=== PATIENT | female | born 1985 | race Two or more races ===

== ENCOUNTER 2019-08-31 09:01 | Emergency (ER) | payer MEDICAID, OTHER ==
[~2019-08-31] VITALS: Ht 160 cm; Wt 74.4 kg
[2019-08-31 09:42] VITALS: BP 142/103
[2019-08-31 10:00] LABS: Urine Bacteria FEW /hpf (None Seen); Urine Blood Negative /uL (Negative); Urine Mucus FEW (None Seen); Urine Specific Gravity 1.031 (1.001-1.035); Urine WBC 5 /hpf (0 - 5)
[2019-08-31] MEDS ORDERED: ONDANSETRON ODT 4 MG TAB PO ONE ×2 (10:15→10:30)
[2019-08-31] MEDS ORDERED: cefTRIAXone SOD 1,000 MG VL IM ONE (10:15)
[2019-08-31] MEDS ORDERED: cefTRIAXone 1GM/50ML D5W 50 ML IV ONE (10:30)
[2019-08-31] MEDS ORDERED: SODIUM CHLORIDE 0.9% 1,000 ML IV ONE (10:30)
[2019-08-31 10:40] LABS: Basophils # (auto) 0 uL; Basophils % (auto) 0.5 % (0.0-2.0); Eosinophils # (auto) 0 uL; Eosinophils % (auto) 0.1 % (0.0-7.0); Lymphocytes # (auto) 1.1 uL; Lymphocytes % (auto) 12.9 % (10.0-50.0); Mean Corpuscular Hemoglobin 29.6 pg (28.0-32.0); Mean Corpuscular Hgb Conc. 33.3 g/dL (32.0-36.0); Mean Corpuscular Volume 88.7 fL (80.0-100.0); Monocytes # (auto) 0.4 uL; Monocytes % (auto) 4.3 % (0.0-12.0); Neutrophils # (auto) 7.3 uL; Neutrophils % (auto) 82.2 % (37.0-80.0); Platelet Count (auto) 250 10^3/uL (140-450); Red Cell Distribution Width 13.1 % (11.8-14.3); White Blood Cell 8.9 10^3/uL (4.4-10.8)
[2019-08-31 11:18] LABS: Potassium 3.6 mmol/L (3.5-5.1)
[2019-08-31 11:22] LABS: Calcium 8.8 mg/dL (8.5-10.1)
== END 2019-08-31 11:27 | disposition home or self-care (01) ==
LOC: ER 09:01
DX: Z32.01 Encounter for pregnancy test, result positive (principal); N39.0 Urinary tract infection, site not specified; R11.2 Nausea with vomiting, unspecified
CPT/HCPCS: 36415; 80048; 81001; 81025; 84702; 85025; 96365; 99283; J0696; J7030; Q0162

== ENCOUNTER 2019-09-11 19:31 | Emergency (ER) | payer MEDICAID ==
[~2019-09-11] VITALS: Ht 160 cm; Wt 74.4 kg
[2019-09-11 20:19] LABS: Urine Bacteria NONE SEEN /hpf (None Seen); Urine Blood 2+ /uL (Negative); Urine Mucus MODERATE (None Seen); Urine Specific Gravity 1.034 (1.001-1.035); Urine WBC 84 /hpf (0 - 5)
[2019-09-11 20:37] LABS: Basophils # (auto) 0.1 uL; Basophils % (auto) 0.9 % (0.0-2.0); Eosinophils # (auto) 0.1 uL; Eosinophils % (auto) 0.8 % (0.0-7.0); Hematocrit 40.4 % (36.0-46.0); Hemoglobin 13.7 g/dL (12.2-16.2); Lymphocytes # (auto) 2.9 uL; Lymphocytes % (auto) 27.2 % (10.0-50.0); Mean Corpuscular Hemoglobin 30.4 pg (28.0-32.0); Mean Corpuscular Hgb Conc. 33.9 g/dL (32.0-36.0); Mean Corpuscular Volume 89.6 fL (80.0-100.0); Monocytes # (auto) 1.1 uL; Monocytes % (auto) 10.5 % (0.0-12.0); Neutrophils # (auto) 6.5 uL; Neutrophils % (auto) 60.6 % (37.0-80.0); Platelet Count (auto) 223 10^3/uL (140-450); Red Cell Distribution Width 13.9 % (11.8-14.3); White Blood Cell 10.8 10^3/uL (4.4-10.8)
[2019-09-11 20:58] LABS: BUN/Creatinine Ratio 17.6; Calcium 8.6 mg/dL (8.5-10.1); Potassium 3.8 mmol/L (3.5-5.1)
[2019-09-11 21:01] LABS: Bilirubin, Total 0.4 mg/dL (0.2-1.0); Total Protein 7.8 g/dL (6.4-8.2)
[2019-09-11 22:09] VITALS: BP 148/87
== END 2019-09-11 23:07 | disposition home or self-care (01) ==
LOC: ER 19:31
DX: O20.8 Other hemorrhage in early pregnancy (principal); O23.41 Unspecified infection of urinary tract in pregnancy, first trimester; Z3A.01 Less than 8 weeks gestation of pregnancy
CPT/HCPCS: 36415; 76801; 80053; 81001; 84702; 85025

== ENCOUNTER 2019-09-15 13:28 | Emergency (ER) | payer MEDICAID ==
[~2019-09-15] VITALS: Ht 160 cm; Wt 70.3 kg
[2019-09-15] MEDS ORDERED: SODIUM CHLORIDE 0.9% 1,000 ML IV ONE ×2 (14:06→22:30)
[2019-09-15 14:09] LABS: Urine Bacteria NONE SEEN /hpf (None Seen); Urine Blood Negative /uL (Negative); Urine Mucus MANY (None Seen); Urine Specific Gravity 1.033 (1.001-1.035); Urine WBC 12 /hpf (0 - 5)
[2019-09-15] MEDS ORDERED: ONDANSETRON HCL 4 MG/2 ML VIAL IV ONE (14:15)
[2019-09-15 14:21] LABS: Basophils # (auto) 0.1 uL; Basophils % (auto) 0.6 % (0.0-2.0); Eosinophils # (auto) 0.1 uL; Eosinophils % (auto) 0.8 % (0.0-7.0); Hematocrit 42.8 % (36.0-46.0); Hemoglobin 14.3 g/dL (12.2-16.2); Lymphocytes # (auto) 2.5 uL; Lymphocytes % (auto) 26.6 % (10.0-50.0); Mean Corpuscular Hemoglobin 29.8 pg (28.0-32.0); Mean Corpuscular Hgb Conc. 33.5 g/dL (32.0-36.0); Monocytes % (auto) 10.6 % (0.0-12.0); Neutrophils # (auto) 5.8 uL; Neutrophils % (auto) 61.4 % (37.0-80.0); Platelet Count (auto) 250 10^3/uL (140-450); Red Blood Cells 4.81 10^6/uL (4.0-5.20); Red Cell Distribution Width 13.6 % (11.8-14.3); White Blood Cell 9.5 10^3/uL (4.4-10.8)
[2019-09-15 14:39] LABS: Albumin 4.1 g/dL (3.4-5.0); BUN/Creatinine Ratio 17.2; Calcium 8.9 mg/dL (8.5-10.1); Potassium 3.5 mmol/L (3.5-5.1)
[2019-09-15 14:42] LABS: Bilirubin, Total 0.6 mg/dL (0.2-1.0)
[2019-09-15 21:30] VITALS: BP 145/92
== END 2019-09-15 23:27 | disposition home or self-care (01) ==
LOC: ER 13:28
DX: O21.0 Mild hyperemesis gravidarum (principal); O23.41 Unspecified infection of urinary tract in pregnancy, first trimester; O21.8 Other vomiting complicating pregnancy; Z3A.01 Less than 8 weeks gestation of pregnancy
CPT/HCPCS: 36415; 80053; 81001; 82010; 85025; 96361; 96374; 99283; J2405; J7030

== ENCOUNTER → 2019-10-10 | Emergency (ER) | payer MEDICAID ==
[~2019-10-10] VITALS: Ht 160 cm; Wt 69.4 kg
[2019-10-10 19:38] LABS: Basophils # (auto) 0 uL; Basophils % (auto) 0.2 % (0.0-2.0); Eosinophils # (auto) 0.1 uL; Eosinophils % (auto) 0.5 % (0.0-7.0); Hematocrit 38.3 % (36.0-46.0); Hemoglobin 12.7 g/dL (12.2-16.2); Lymphocytes # (auto) 1.7 uL; Lymphocytes % (auto) 13.8 % (10.0-50.0); Mean Corpuscular Hemoglobin 29.7 pg (28.0-32.0); Mean Corpuscular Hgb Conc. 33.3 g/dL (32.0-36.0); Mean Corpuscular Volume 89.4 fL (80.0-100.0); Monocytes # (auto) 0.9 uL; Monocytes % (auto) 7.3 % (0.0-12.0); Neutrophils # (auto) 9.5 uL; Neutrophils % (auto) 78.2 % (37.0-80.0); Nucleated Red Blood Cells % 0.1 %; Platelet Count (auto) 228 10^3/uL (140-450); Red Blood Cells 4.28 10^6/uL (4.0-5.20); Red Cell Distribution Width 14.3 % (11.8-14.3); White Blood Cell 12.1 10^3/uL (4.4-10.8)
[2019-10-10 19:56] LABS: Albumin 3.5 g/dL (3.4-5.0); BUN/Creatinine Ratio 15.4; Calcium 8.6 mg/dL (8.5-10.1); Potassium 3.6 mmol/L (3.5-5.1)
[2019-10-10 19:58] LABS: Bilirubin, Total 0.1 mg/dL (0.2-1.0); Total Protein 7.1 g/dL (6.4-8.2)
[2019-10-10 20:14] LABS: Urine Bacteria NONE SEEN /hpf (None Seen); Urine Blood Negative /uL (Negative); Urine Mucus FEW (None Seen); Urine Specific Gravity 1.008 (1.001-1.035); Urine WBC 12 /hpf (0 - 5)
[2019-10-10 22:55] VITALS: BP 129/88
== END | disposition home or self-care (01) ==
LOC: ER 17:16
DX: O23.41 Unspecified infection of urinary tract in pregnancy, first trimester (principal); O20.8 Other hemorrhage in early pregnancy; Z3A.11 11 weeks gestation of pregnancy
CPT/HCPCS: 36415; 76801; 80053; 81001; 83690; 84702; 85025

== ENCOUNTER 2020-03-28 10:47 | Observation (INO) | payer MEDICAID ==
[~2020-03-28] VITALS: Ht 160 cm; Wt 83.5 kg
[2020-03-28 11:25] LABS: Urine Bacteria FEW /hpf (None Seen); Urine Blood Negative /uL (Negative); Urine Mucus FEW (None Seen); Urine Specific Gravity 1.025 (1.001-1.035); Urine WBC 51 /hpf (0 - 5)
[2020-03-28 11:38] LABS: Basophils # (auto) 0 10 ^3/uL (0-0.2); Basophils % (auto) 0.2 % (0.0-2.0); Eosinophils # (auto) 0.1 10 ^3/uL (0-0.8); Eosinophils % (auto) 0.6 % (0.0-7.0); Hematocrit 35.9 % (36.0-46.0); Hemoglobin 11.6 g/dL (12.2-16.2); Lymphocytes # (auto) 1.8 10 ^3/uL (0.4-5.4); Lymphocytes % (auto) 21.1 % (10.0-50.0); Mean Corpuscular Hemoglobin 28.1 pg (28.0-32.0); Mean Corpuscular Hgb Conc. 32.3 g/dL (32.0-36.0); Monocytes # (auto) 0.6 10 ^3/uL (0-1.3); Monocytes % (auto) 7.4 % (0.0-12.0); Neutrophils % (auto) 70.7 % (37.0-80.0); Platelet Count (auto) 164 10^3/uL (140-450); Red Blood Cells 4.13 10^6/uL (4.0-5.20); Red Cell Distribution Width 15.8 % (11.8-14.3); White Blood Cell 8.4 10^3/uL (4.4-10.8)
[2020-03-28 11:39] LABS: Amphetamine Screen, Urine NEGATIVE (NEGATIVE); Barbiturate Scree,Urine NEGATIVE (NEGATIVE); Benzodiazephine Screen, Urine NEGATIVE (NEGATIVE); Cannabinoid Screen, Urine NEGATIVE (NEGATIVE)
[2020-03-28 11:40] LABS: Cocaine Screen, Urine NEGATIVE (NEGATIVE); Opiate Scree,Urine NEGATIVE (NEGATIVE); Phencyclidine Screen, Urine NEGATIVE (NEGATIVE)
[2020-03-28 11:55] LABS: Albumin 2.7 g/dL (3.4-5.0); Calcium 8.4 mg/dL (8.5-10.1); Potassium 3.5 mmol/L (3.5-5.1)
[2020-03-28 12:01] LABS: BUN/Creatinine Ratio 16.7; Bilirubin, Total 0.3 mg/dL (0.2-1.0); Total Protein 6.5 g/dL (6.4-8.2); Uric Acid 4.2 mg/dL (2.6-6.0)
[2020-03-28 12:07] LABS: INR 0.92 (0.9-1.15); Partial Thromboplastin Time 24.8 sec (23.0-31.2)
[2020-03-29 05:07] LABS: RPR Non Reactive (Non Reactive)
== END 2020-03-28 13:25 | disposition home or self-care (01) ==
LOC: LDRP 10:47
PROVIDERS: ADMIT Specialist; ATTEND Specialist
DX: O13.3 Gestational [pregnancy-induced] hypertension without significant proteinuria, third trimester (principal); Z3A.35 35 weeks gestation of pregnancy
CPT/HCPCS: 36415; 59025; 80053; 80307; 81001; 84550; 85025; 85379; 85610; 85730; 86592; G0378

== ENCOUNTER 2020-03-30 09:25 | Observation (INO) | payer MEDICAID ==
[~2020-03-30] VITALS: Ht 160 cm; Wt 83.5 kg
[2020-03-30 11:21] LABS: Protein, Urine 5.7 mg/dL (0.0-11.9)
[2020-03-30 11:28] LABS: 24 Hr. Total Protein, Urine 138.2 mg/24 Hr (<149.1)
[2020-03-30 11:47] LABS: Creatinine Clearance, Urine 166.22 mL/min (75-115)
== END 2020-03-30 11:20 | disposition home or self-care (01) ==
LOC: LDRP 09:25
PROVIDERS: ADMIT Obstetrics & Gynecology; ATTEND Obstetrics & Gynecology
DX: O13.3 Gestational [pregnancy-induced] hypertension without significant proteinuria, third trimester (principal); Z3A.35 35 weeks gestation of pregnancy
CPT/HCPCS: 59025; 81002; 82575; 84156; G0378

== ENCOUNTER 2020-04-20 09:10 | Observation (INO) | payer MEDICAID | END 2020-04-20 10:40 | disposition home or self-care (01) | LOC: LDRP 09:10 | PROVIDERS: ADMIT Specialist; ATTEND Specialist | DX: O26.893 Other specified pregnancy related conditions, third trimester (principal); Z3A.38 38 weeks gestation of pregnancy | CPT/HCPCS: 59025; 81002; G0378 ==

== ENCOUNTER 2020-04-24 08:55 | Inpatient (IN) | payer MEDICAID ==
[~2020-04-24] VITALS: Ht 160 cm; Wt 86.6 kg
[2020-04-24] MEDS ORDERED: LACT. RINGERS/OXYTOCIN 20UNITS 1,000 ML IV SCH (13:52)
[2020-04-24] MEDS ORDERED: DERMOPLAST 60ML BOTTLE TOP PRN (14:00)
[2020-04-24] MEDS ORDERED: METHYLERGONOVINE MALEATE 0.2 MG/ML AMP IM PRN (14:00)
[2020-04-24] MEDS ORDERED: LIDOCAINE 2%HCL (LOCAL ANESTH.) INJ 20ML MDV ID PRN (14:00)
[2020-04-24] MEDS ORDERED: PHISODERM TOP SOLN 240ML BTL TOP PRN (14:00)
[2020-04-24] MEDS ORDERED: WITCH HAZEL-GLYCERIN PAD TOP PRN (14:00)
[2020-04-24 14:38] LABS: Basophils # (auto) 0 10 ^3/uL (0-0.2); Basophils % (auto) 0.7 % (0.0-2.0); Eosinophils # (auto) 0.1 10 ^3/uL (0-0.8); Eosinophils % (auto) 1.5 % (0.0-7.0); Hematocrit 33.9 % (36.0-46.0); Lymphocytes # (auto) 1.7 10 ^3/uL (0.4-5.4); Lymphocytes % (auto) 23.2 % (10.0-50.0); Mean Corpuscular Hemoglobin 27.9 pg (28.0-32.0); Mean Corpuscular Hgb Conc. 32.5 g/dL (32.0-36.0); Mean Corpuscular Volume 85.7 fL (80.0-100.0); Monocytes # (auto) 0.8 10 ^3/uL (0-1.3); Monocytes % (auto) 10.8 % (0.0-12.0); Neutrophils # (auto) 4.7 10 ^3/uL (1.6-8.6); Neutrophils % (auto) 63.8 % (37.0-80.0); Platelet Count (auto) 154 10^3/uL (140-450); Red Blood Cells 3.96 10^6/uL (4.0-5.20); Red Cell Distribution Width 16.5 % (11.8-14.3); White Blood Cell 7.3 10^3/uL (4.4-10.8)
[2020-04-24 14:54] LABS: INR 0.9 (0.9-1.15); Partial Thromboplastin Time 22.6 sec (23.0-31.2)
[2020-04-24 15:08] LABS: Albumin 2.6 g/dL (3.4-5.0); Calcium 8.1 mg/dL (8.5-10.1); Uric Acid 4.5 mg/dL (2.6-6.0)
[2020-04-24 15:11] LABS: BUN/Creatinine Ratio 24.1; Bilirubin, Total 0.2 mg/dL (0.2-1.0); Total Protein 6.2 g/dL (6.4-8.2)
[2020-04-24 15:53] LABS: Urine Bacteria NONE SEEN /hpf (None Seen); Urine Blood Negative /uL (Negative); Urine Mucus FEW (None Seen); Urine Specific Gravity 1.027 (1.001-1.035); Urine WBC <1 /hpf (0 - 5)
[2020-04-24] MEDS: LACTATED RINGER'S 1,000 ML IV SCH (15:55)
[2020-04-24 15:57] LABS: Alcohol, Urine < 3.0 mg/dL (0-10); Amphetamine Screen, Urine NEGATIVE (NEGATIVE); Barbiturate Scree,Urine NEGATIVE (NEGATIVE); Benzodiazephine Screen, Urine NEGATIVE (NEGATIVE); Cannabinoid Screen, Urine NEGATIVE (NEGATIVE); Cocaine Screen, Urine NEGATIVE (NEGATIVE); Opiate Scree,Urine NEGATIVE (NEGATIVE); Phencyclidine Screen, Urine NEGATIVE (NEGATIVE)
[2020-04-24] MEDS: miSOPROStol 50 MCG per PRE-CUT 1/2 TAB PO PRN ×2 (17:08→22:05)
[2020-04-24] MEDS: LABETALOL HCL 200 MG TAB PO SCH (18:38)
[2020-04-25] MEDS: miSOPROStol 50 MCG per PRE-CUT 1/2 TAB PO PRN ×2 (02:36→06:35)
[2020-04-25 05:08] LABS: RPR Non Reactive (Non Reactive)
[2020-04-25] MEDS: LABETALOL HCL 200 MG TAB PO SCH ×2 (06:35→18:51)
[2020-04-25] MEDS: ceFAZolin 1GM/50ML 50 ML IV SCH ×2 (07:51→17:10)
[2020-04-25] MEDS ORDERED: fentaNYL 400mCg/200ml W ROPIVA 200 ML EPI SCH (08:15)
[2020-04-25] MEDS ORDERED: LIDOCAINE HCL 2 %PF INJ 10ML AMP IJ ONE ×2 (08:15→08:19)
[2020-04-25] MEDS ORDERED: ePHEDrine SULFATE 50 MG/ML AMP IV ONE (08:15)
[2020-04-25] MEDS ORDERED: ePHEDrine SULFATE 50 MG/ML AMP ONE (08:19)
[2020-04-25] MEDS ORDERED: fentaNYL CITRATE 100 MCG/2 ML VL IV ONE (08:45)
[2020-04-25] MEDS ORDERED: ROPIVACAINE HCL 100 ML EPI SCH (08:45)
[2020-04-25] MEDS: LACTATED RINGER'S 1,000 ML IV SCH ×3 (09:00→17:46)
[2020-04-25] MEDS: ROPIVACAINE HCL 100 ML EPI SCH ×2 (09:03→16:02)
[2020-04-25] MEDS ORDERED: ACETAMINOPHEN 325 MG TAB PO ONE ×2 (13:15→18:45)
[2020-04-25] MEDS ORDERED: LACT. RINGERS/OXYTOCIN 20UNITS 1,000 ML IV ONE (21:37)
[2020-04-25] MEDS ORDERED: LACT. RINGERS/OXYTOCIN 20UNITS 1,000 ML IV SCH (22:37)
[2020-04-25] MEDS: IBUPROFEN 600 MG TAB PO PRN (23:45)
[2020-04-25] MEDS ORDERED: ACETAMINOPHEN 325 MG TAB PO PRN (23:45)
--- NOTE | 2020-04-26 00:10 | NUR ---
Ambulation: Epidural Catheter removed. Blue tip visualized intact. Patient OOB with standby assistance by RN. Patient ambulated to bathroom with steady gait. Patient able to void 700ml without difficulty. Pericare teaching provided with returned demonstration by patient. Clean gown provided and bed linen changed. Patient ambulated back to bed with steady gait and no distress noted.
[2020-04-26] MEDS ORDERED: PREN-96 PO (03:22)
[2020-04-26 03:30] VITALS: BP 117/67
[2020-04-26] MEDS: LABETALOL HCL 200 MG TAB PO SCH ×3 (06:45→19:15)
[2020-04-26 07:22] VITALS: BP 132/85
[2020-04-26] MEDS: IBUPROFEN 600 MG TAB PO PRN ×2 (09:28→17:19)
--- NOTE | 2020-04-26 10:00 | NUR ---
SS consult regarding positive THC in October, Negative this visit. Patient informed me she does not recall being positive in October but did take care of her self while being . Pt resides with her and will have assistance with baby from upon discharge. Pt has all supplies as well as car seat for baby and will be bottle and breast fed. Pt has medical insurance for herself/baby and will be following up with provider appt post discharge. Pt has transportation home upon discharge. Due to patient and baby not being positive. CPS will not be contact.
[2020-04-26 11:00] VITALS: BP 129/76
[2020-04-26 15:00] VITALS: BP 133/80
[2020-04-26 19:00] VITALS: BP 140/86
--- NOTE | 2020-04-26 21:14 | NUR ---
IV removal IV DC'd with clean technique, catheter fully intact. Pressure dressing applied to site. Patient tolerated well. NOTE:
[2020-04-26 23:00] VITALS: BP 127/76
[2020-04-27 02:49] VITALS: BP 123/73
[2020-04-27 07:00] VITALS: BP 136/89
[2020-04-27] MEDS: IBUPROFEN 600 MG TAB PO PRN (07:13)
[2020-04-27] MEDS: LABETALOL HCL 200 MG TAB PO SCH (07:17)
--- NOTE | 2020-04-27 12:24 | NUR ---
Discharge: Discharge instructions given to mother of baby as ordered. Copies of and hearing screening, along with vaccination record given to mother. Mother encouraged to follow up with Dr Valencia on 04/30 at 10:30 and to give envelope with infants information to abrasive coating machine operator at 1st office visit. All questions and concerns addressed. Mother of baby verbalized understanding and agreed to comply. Mother of baby encouraged to prepare for departure and notify RN ready to leave room for ID band removal/verification and infant car seat check.
--- NOTE | 2020-04-27 12:25 | NUR ---
Discharge: Discharge instructions given as ordered. Pt encouraged to follow up with [facility]aternal Health, Dr Woodward on Sunday 05/13 at 9am as instructed. All questions and concerns addressed. Patient verbalized understanding. Medication reconciliation completed and copy given to patient. All required/requested vaccines given and copies of vaccinations given to patient. Patient encouraged to prepare to depart unit. Maternal Mental health resource handout provided "Save your Life" handout from [facility], Post Hypertension discharge teaching handout provided, all handouts discussed in detail patient verbalizes understanding and agrees with plan of care.
[2020-04-27 12:38] VITALS: BP 131/81
--- NOTE | 2020-04-27 12:49 | NUR ---
Discharge: Patient ambulated to car with all personal belongings, accompanied by staff and family member. No distress noted at time of departure, no adverse changes in status since initial assessment.
== END 2020-04-27 12:49 | disposition home or self-care (01) | DRG 560 ==
LOC: LDRP 08:55 → OBSVTOIN 13:45 → LDRP 13:53
PROVIDERS: ADMIT Obstetrics & Gynecology; ATTEND Obstetrics & Gynecology
PROC: 10E0XZZ Delivery of Products of Conception, External Approach (ICD-10-PCS; principal; 2020-04-25)
PROC: 3E0R3BZ Introduction of Anesthetic Agent into Spinal Canal, Percutaneous Approach (ICD-10-PCS; 2020-04-25)
PROC: 00HU33Z Insertion of Infusion Device into Spinal Canal, Percutaneous Approach (ICD-10-PCS; 2020-04-25)
DX: O42.92 Full-term premature rupture of membranes, unspecified as to length of time between rupture and onset of labor (principal); O69.81X0 Labor and delivery complicated by cord around neck, without compression, not applicable or unspecified; Z20.828 Contact with and (suspected) exposure to other viral communicable diseases; Z3A.39 39 weeks gestation of pregnancy; Z37.0 Single live birth
CPT/HCPCS: 36415; 59025; 59409; 62282; 76818; 80053; 80307; 81001; 81002; 84112; 84550; 85025; 85610; 85730; 86592; 86850; 86900; 86901; 87426; 94762; 96360; 96361; 96365; 96366; G0378; J0690; J2590

== ENCOUNTER 2022-10-15 22:06 | Emergency (ER) | payer MEDICAID ==
[~2022-10-15] VITALS: Ht 160 cm; Wt 70.0 kg
[~2022-10-15 22:06] MED LIST: PREN-96 PO
[2022-10-15 22:25] VITALS: BP 140/86
[2022-10-15 23:16] LABS: Basophils # (auto) 0 10 ^3/uL (0-0.2); Basophils % (auto) 0.3 % (0.0-2.0); Lymphocytes # (auto) 2.3 10 ^3/uL (0.4-5.4); Monocytes # (auto) 0.6 10 ^3/uL (0-1.3); Neutrophils # (auto) 3.5 10 ^3/uL (1.6-8.6)
[2022-10-15 23:18] LABS: Eosinophils # (auto) 0.1 10 ^3/uL (0-0.8); Eosinophils % (auto) 1.1 % (0.0-7.0); Hematocrit 27.2 % (36.0-46.0); Hemoglobin 8.5 g/dL (12.2-16.2); Lymphocytes % (auto) 35.5 % (10.0-50.0); Mean Corpuscular Hemoglobin 20.7 pg (28.0-32.0); Mean Corpuscular Hgb Conc. 31.2 g/dL (32.0-36.0); Mean Corpuscular Volume 66.3 fL (80.0-100.0); Monocytes % (auto) 9.4 % (0.0-12.0); Neutrophils % (auto) 53.7 % (37.0-80.0); Nucleated Red Blood Cells % 0.1 %; Red Blood Cells 4.11 10^6/uL (4.0-5.20); Red Cell Distribution Width 18.1 % (11.8-14.3); White Blood Cell 6.5 10^3/uL (4.4-10.8)
[2022-10-15 23:33] LABS: Albumin 3.7 g/dL (3.4-5.0); BUN/Creatinine Ratio 27.1; Calcium 8.5 mg/dL (8.5-10.1); Potassium 3.7 mmol/L (3.5-5.1)
[2022-10-15 23:35] LABS: Bilirubin, Total 0.2 mg/dL (0.2-1.0); Total Protein 7.3 g/dL (6.4-8.2)
[2022-10-16 00:18] LABS: Urine Bacteria FEW /hpf (None Seen); Urine Blood Negative /uL (Negative); Urine Mucus FEW (None Seen); Urine Specific Gravity 1.022 (1.001-1.035); Urine WBC 1 /hpf (0 - 5)
[2022-10-16] MEDS ORDERED: ONDANSETRON ODT 4 MG TAB PO ONE (03:15)
[2022-10-16] MEDS ORDERED: ONDA-144 PO (04:39)
== END 2022-10-16 06:06 | disposition left against medical advice (07) ==
LOC: ER 22:06
DX: R11.2 Nausea with vomiting, unspecified (principal); N89.8 Other specified noninflammatory disorders of vagina; R19.7 Diarrhea, unspecified; Z90.49 Acquired absence of other specified parts of digestive tract
CPT/HCPCS: 36415; 80053; 81001; 81025; 83690; 85025

== ENCOUNTER 2023-03-12 16:59 | Emergency (ER) | payer MEDICAID ==
[~2023-03-12] VITALS: Ht 160 cm; Wt 76.9 kg
[~2023-03-12 16:59] MED LIST changes: +ONDA-144 PO
[2023-03-12 18:58] LABS: Basophils # (auto) 0 10 ^3/uL (0-0.2); Eosinophils # (auto) 0.1 10 ^3/uL (0-0.8); Mean Corpuscular Volume 69.4 fL (80.0-100.0); Monocytes # (auto) 0.8 10 ^3/uL (0-1.3)
[2023-03-12 19:00] VITALS: BP 123/82; PULSE 98; RESP 18; TEMP 97.8; O2SAT 96
[2023-03-12 19:00] LABS: Basophils % (auto) 0.3 % (0.0-2.0); Eosinophils % (auto) 1.1 % (0.0-7.0); Hematocrit 27.4 % (36.0-46.0); Hemoglobin 8.4 g/dL (12.2-16.2); Lymphocytes % (auto) 21.2 % (10.0-50.0); Mean Corpuscular Hemoglobin 21.3 pg (28.0-32.0); Mean Corpuscular Hgb Conc. 30.7 g/dL (32.0-36.0); Monocytes % (auto) 8.7 % (0.0-12.0); Neutrophils # (auto) 6.3 10 ^3/uL (1.6-8.6); Neutrophils % (auto) 68.7 % (37.0-80.0); Red Blood Cells 3.95 10^6/uL (4.0-5.20); Red Cell Distribution Width 18.6 % (11.8-14.3); White Blood Cell 9.2 10^3/uL (4.4-10.8)
== END 2023-03-12 21:26 | disposition home or self-care (01) ==
LOC: ER 16:59
DX: O99.012 Anemia complicating pregnancy, second trimester (principal); R11.0 Nausea; R10.2 Pelvic and perineal pain; Z3A.18 18 weeks gestation of pregnancy; Z90.49 Acquired absence of other specified parts of digestive tract
CPT/HCPCS: 36415; 76805; 81025; 84702; 85025; 86900; 86901